=== PATIENT | female | born 1985 | race African-American/Black ===

== ENCOUNTER 2016-09-10 16:50 | Emergency (ER) | payer OTHER ==
[2016-09-10 17:15] LABS: ASCORBIC ACID (UR NOT ORDER) 40 (NEG); BILIRUBIN, URINE NEGATIVE (NEG); KETONE, URINE TRACE MG/DL (NEG); LEUKOCYTE ESTERASE(NOT OR NEG (NEG); NITRITE (URINE) NEG (NEG); WBC (NOT ORDERED) (RFLEX) < 1 (0-5)
[2016-09-10 19:01] LABS: CHLAMYDIA TRACH PCR NOT DETECTED (NOT DETEC); GC PCR NOT DETECTED (NOT DETECT); SOURCE: FEMALE URINE
== END 2016-09-10 17:25 | disposition home or self-care (01) ==
LOC: ER 16:50
PROVIDERS: Physician Assistant
DX: N76.0 Acute vaginitis (principal); K64.9 Unspecified hemorrhoids; M54.5 Low back pain
CPT/HCPCS: 72100; 81001; 84703; 87491; 87591; 96372; 99284; A9270-GY; J0696; J1885